=== PATIENT | female | born 1965 | race Caucasian/White ===

== ENCOUNTER 2022-04-28 10:42 | Outpatient (CLI) | payer OTHER, SELFPAY ==
--- NOTE | 2022-04-28 11:02 | MM_ITS ---
WS: [id number] BILATERAL SCREENING DIGITAL TOMOSYNTHESIS MAMMOGRAM WITH CAD HISTORY: SCREENING COMPARISON: 06/18/2015 Bilateral CC and MLO views with tomosynthesis and synthetic mammography submitted. Computer aided det ection analyzed. Breast composition: There are scattered areas of fibroglandular density. No suspicious masses, microc alcifications or architectural distortion. Benign coarse calcifications in each breast. MM/[id number] IMPRESSION: BI-RADS: 2-Benign FOLLOW UP: 1 Year Follow-up
== END 2022-04-28 10:43 | disposition home or self-care (01) ==
PROVIDERS: PCP Family Medicine; Visit Provider Family Medicine
DX: Z12.31 Encounter for screening mammogram for malignant neoplasm of breast (principal)
CPT/HCPCS: 77063; 77067

== ENCOUNTER 2022-08-12 09:48 | Outpatient (CLI) | payer OTHER, SELFPAY ==
--- NOTE | 2022-08-12 09:52 | NM_ITS ---
WS: [id number] NUCLEAR MEDICINE 24 HOUR I-123 THYROID UPTAKE INDICATION: Hyperthyroidism. TECHNIQUE: I-123 24 HOUR THYROID UPTAKE WITH PLANAR IMAGING. 128 UCI ERIC 123 COMPARISON: None FINDINGS: Normal homogeneous thyroid uptake. No cold nodules. Increased thyroid uptake 111.36% at 24 hours. NORMAL 24H THRYOID UPTAKE 8-35% NM/NM thyroid uptake multi [id number] IMPRESSION: 1. Increased thyroid uptake 111.36% at 24 hours compatible with hyperthyroidis m. Recommend correlation with thyroid goiter and thyroiditis. 2. Recommend correlation with thyroid function studies.
== END 2022-08-12 09:49 | disposition home or self-care (01) ==
LOC: RAD 09:50
PROVIDERS: PCP Family Medicine; Visit Provider Internal Medicine
DX: E05.00 Thyrotoxicosis with diffuse goiter without thyrotoxic crisis or storm (principal)
CPT/HCPCS: 78014; A9516

== ENCOUNTER → 2023-01-12 08:59 | Outpatient (BNVA) | payer OTHER, SELFPAY | PROVIDERS: PCP Family Medicine; Referring Provider Family Medicine; Visit Provider Internal Medicine | DX: E05.00 Thyrotoxicosis with diffuse goiter without thyrotoxic crisis or storm (principal) | CPT/HCPCS: 36415; 84439; 84443; 84480 ==

== ENCOUNTER 2023-01-20 10:21 | Outpatient (CLI) | payer OTHER, SELFPAY ==
[2023-01-20 11:15] LABS: Free T4 Free Thyroxine 0.32 ng/dL (0.82-1.77)
[2023-01-21 09:05] LABS: T3 Total 170 ng/dL (76-181)
[2023-01-22 07:08] LABS: Thyroglobulin AB <1 IU/mL (< or = 1)
[2023-01-22 14:54] LABS: Thyroid Peroxidase Antobodies 109 IU/mL (<9)
== END 2023-01-20 10:22 | disposition home or self-care (01) ==
PROVIDERS: PCP Family Medicine; Visit Provider Internal Medicine
DX: E05.00 Thyrotoxicosis with diffuse goiter without thyrotoxic crisis or storm (principal); I10 Essential (primary) hypertension
CPT/HCPCS: 36415; 84439; 84480; 86376; 86800

== ENCOUNTER 2023-02-10 10:54 | Outpatient (CLI) | payer OTHER, SELFPAY ==
[2023-02-10 12:20] LABS: Free T4 Free Thyroxine 1.07 ng/dL (0.82-1.77); Thyroid Stimulating Hormone 0.22 uIU/mL (0.27-4.20)
[2023-02-11 11:05] LABS: T3 Total 156 ng/dL (76-181)
== END 2023-02-10 10:55 | disposition home or self-care (01) ==
LOC: LAB 10:56
PROVIDERS: PCP Family Medicine; Visit Provider Internal Medicine
DX: E05.90 Thyrotoxicosis, unspecified without thyrotoxic crisis or storm (principal)
CPT/HCPCS: 36415; 84439; 84443; 84480

== ENCOUNTER 2023-03-22 09:18 | Outpatient (CLI) | payer OTHER, SELFPAY ==
[2023-03-22 10:15] LABS: Free T4 Free Thyroxine 1.43 ng/dL (0.82-1.77); Thyroid Stimulating Hormone 0.03 uIU/mL (0.27-4.20)
[2023-03-23 07:09] LABS: T3 Total 163 ng/dL (76-181)
== END 2023-03-22 09:19 | disposition home or self-care (01) ==
LOC: LAB 09:18
PROVIDERS: PCP Family Medicine; Visit Provider Internal Medicine
DX: E05.00 Thyrotoxicosis with diffuse goiter without thyrotoxic crisis or storm (principal)
CPT/HCPCS: 36415; 84439; 84443; 84480

== ENCOUNTER 2023-05-24 12:55 | Outpatient (CLI) | payer OTHER, SELFPAY ==
[2023-05-24 13:46] LABS: Free T4 Free Thyroxine 2.37 ng/dL (0.82-1.77); Thyroid Stimulating Hormone 0.01 uIU/mL (0.27-4.20)
[2023-05-25 09:29] LABS: T3 Total 219 ng/dL (76-181)
== END 2023-05-24 12:56 | disposition home or self-care (01) ==
LOC: LAB 12:56
PROVIDERS: PCP Family Medicine; Visit Provider Internal Medicine
DX: E05.90 Thyrotoxicosis, unspecified without thyrotoxic crisis or storm (principal)
CPT/HCPCS: 36415; 84439; 84443; 84480

== ENCOUNTER 2023-06-28 11:06 | Outpatient (CLI) | payer OTHER, SELFPAY ==
--- NOTE | 2023-06-28 11:15 | US_ITS ---
WS: [id number] THYROID ULTRASOUND HISTORY: Thyroid nodules COMPARISON: Ultrasound 06/01/2016 Right lobe: 2.1 cm x 2.3 cm x 4.7 cm (w x ap x l). Volume: 10.9 cm3. Thyroid gland is enlarged with multiple hypoechoic thyroid nodules. There is a larger cystic nodule i n the mid gland. This large cystic nodule measures 1.7 x 1.2 x 2.6 cm. There is marked increased vasc ularity throughout the gland. The remaining hypoechoic nodules are much smaller in size. Left lobe: 2.2 cm x 1.6 cm x 4.6 cm (w x ap x l). Volume: 7.8 cm3. Normal sized gland with numerous hypoechoic nodules. No microcalcifications. No color Doppler submitt ed. Isthmus: 0.2 cm. IMPRESSION: TI-RADS 2: Numerous nodules scattered throughout the gland. The largest nodule is predominantly cysti c. No solid mass. Increased vascularity in the RIGHT thyroid lobe. No Doppler submitted of the LEFT thyroid lobe.
== END 2023-06-28 11:07 | disposition home or self-care (01) ==
LOC: RAD 11:06
PROVIDERS: PCP Family Medicine; Visit Provider Internal Medicine
DX: E06.3 Autoimmune thyroiditis (principal); E05.00 Thyrotoxicosis with diffuse goiter without thyrotoxic crisis or storm
CPT/HCPCS: 76536

== ENCOUNTER 2023-07-16 10:23 | Outpatient (CLI) | payer OTHER, SELFPAY ==
[2023-07-16 12:40] LABS: Free T4 Free Thyroxine 1.14 ng/dL (0.82-1.77); Thyroid Stimulating Hormone 0.01 uIU/mL (0.27-4.20)
[2023-07-17 10:10] LABS: T3 Total 131 ng/dL (76-181)
== END 2023-07-16 10:24 | disposition home or self-care (01) ==
LOC: LAB 10:24
PROVIDERS: PCP Family Medicine; Visit Provider Internal Medicine
DX: E05.00 Thyrotoxicosis with diffuse goiter without thyrotoxic crisis or storm (principal); E06.3 Autoimmune thyroiditis; E05.90 Thyrotoxicosis, unspecified without thyrotoxic crisis or storm
CPT/HCPCS: 84439; 84443; 84480

== ENCOUNTER 2023-07-26 07:23 | Day surgery (SDC) | payer OTHER, SELFPAY ==
[2023-07-26] VITALS (11 sets, daily range): BP systolic 119–149; BP diastolic 62–92; PULSE 52–90; RESP 16–18; TEMP 36.4–36.6; O2SAT 91–98; BMI 23.5
--- NOTE | 2023-07-26 07:38 | W.PM.OPSUD ---
Surgery/Procedure H&P Update DATE OF PROCEDURE: July 26, 2023 DATE H&P PERFORMED: 07/06/23 H&P UPDATE INFORMATION: I have reviewed H&P completed within last 30 days, I have examined patient prior to procedure and No changes to prior documentation CHANGES TO PREVIOUS DOCUMENTATION: No changes except the left lower lip lesion is larger than it had been. PREOP DIAGNOSIS: Thyromegaly with Graves' disease and Jovana's thyroiditis PRIMARY INDICATION FOR PROCEDURE: Thyromegaly with Graves' disease and Jovana's thyroiditis. Left lower lip lesion enlarging in size. PLANNED PROCEDURE: Operation Date: 07/26/23 09:00 Proposed Procedures p Total Thyroidectomy(Not Applicable) - Say Molina MD s Lesion Excisioin Lip Lesion/Mass(Not Applicable) - Say Molina MD
[2023-07-26] MEDS: sodium chloride 0.9% 1,000 ML 30 ML IV (07:55)
--- NOTE | 2023-07-26 08:20 | ANES.PREANE2 ---
Pre-Anesthetic Assessment Height/Weight: Height 1.7 m Weight 68.039 kg Temp Pulse Resp BP Pulse Ox O2 Del Method 97.5 F L 69 17 119/81 98 Room Air 07/26/23 07:42 07/26/23 07:42 07/26/23 07:42 07/26/23 07:42 07/26/23 07:42 07/26/23 07:44 Preop Diagnosis: Thyromegaly with Graves' disease and Jovana's thyroiditis Operation Date: 07/26/23 09:00 Proposed Procedures p Total Thyroidectomy(Not Applicable) - Sya Molina MD s Lesion Excisioin Lip Lesion/Mass(Not Applicable) - Say Molina MD Was Beta Danielle taken within 24 hours: Yes Last intake: Intake Last Liquid Date 07/25/23 Last Liquid Time 20:30 Last Solid Date 07/25/23 Last Solid Time 20:30 Social Tobacco 1/2 ppd x 4 years recently pack(s) per day Exam alert, oriented x 3, clear to auscultation bilaterally and regular rate & rhythm Airway Submandibular: within normal limits Cervical ROM: within normal limits Mallampati: Class II Pulmonary None reported None reported Hepatic None reported GI None reported Metabolic None reported Anesthetic Plan ASA status: 2 Anesthesia: General Medications/Allergies Home Medications Medication Instructions Recorded Confirmed Last Taken Type propranolol 10 mg tablet 10 mg PO BID 90 days #180 tabs 05/04/23 07/23/23 07/26/23 Rx Synthroid 100 mcg tablet 100 mcg PO DAILY #90 tabs 07/19/23 07/23/23 Unknown Rx (levothyroxine) methimazole 5 mg tablet 2.5 mg PO DAILY 07/23/23 07/23/23 07/26/23 History Allergies Allergy/AdvReac Type Severity Reaction Status Date / Time bee venom protein (honey bee) Allergy ALGY-Anaphy Verified 07/26/23 07:39 laxis Current Medications Generic Name Dose Route Start Last Admin Trade Name Freq PRN Reason Stop Dose Admin Sodium Chloride 1,000 mls @ 30 mls/hr 07/26/23 07:30 07/26/23 07:55 Sodium Chloride 0.9% IV 07/27/23 07:29 30 mls/hr .Q24H CHELSEY Administration PFSH Anesthesia Medical History Heart palpitations Hx of Jovana thyroiditis History of hyperthyroidism Graves' disease Surgical History Hx of section Hx of appendectomy Family History Mother Diabetes mellitus, type 2 Social History Smoking and tobacco/nicotine status: current every day tobacco/nicotine user cigarettes Packs smoked per day: 0.5 Years cigarettes smoked: 4 Second hand smoke exposure: No Data Anesthesia Cardiac Studies: No Data to Display
[2023-07-26] MEDS: ceFAZolin 2,000 MG in sodium chloride 0.9% (plus) 50 ML 100 MG IV (09:05)
--- NOTE | 2023-07-26 10:39 | SUR.OPER ---
5.1ML OF 2% LIDOCAINE WITH EPI CARPULES WAS INJECTED INTO THE PATIENT'S NECK.
[2023-07-26] MEDS: neomycin-poly-bacitracin oint 28 gm 1 APPLIC TOPICAL (12:16)
--- NOTE | 2023-07-26 12:23 | P.OP_ITS ---
Operative Report Date of procedure: July 26, 2023 Pre-op diagnosis: Multinodular goiter/Jovana's thyroiditis. Left lower lip lesion Post-op diagnosis: Same Post-op findings: Extremely vascular bilateral thyroid with hypertrophy and nodularity right side greater than left. Extremely thickened isthmus. 5 x 8 mm raised left lower lip lesion Procedure done: Total thyroidectomy. Excision of left lower lip lesion/mass with closure Implants: Quarter inch Bostwick drain to central neck Specimens removed/disposition: Left thyroid lobe. Right thyroid lobe with isthmus. Left lower lip mass. Pathology: Left thyroid lobe. Right thyroid lobe with isthmus. Left lower lip mass. All for permanent pathology. Surgeon: Say Molina MD Anesthesia: General and Local Estimated blood loss: 300 mL Complications: No complications encountered Findings: Bilateral thyroid nodularity right side greater than left with hypertrophy. Jovana's thyroiditis. Left lower lip lesion that she continues to bite in nipple and causing it to persist. Brief History: 57-year-old female patient with Jovana's thyroiditis with bilateral thyroid goiter and right side greater than left with multiple nodules. Left lower lip lesion which probably began from trauma and constant biting and nibbling has caused it to persistent and large. Patient is being brought to the operating room to undergo total thyroidectomy and left lower lip lesion excision. The procedure its risks and complications have been explained in detail to the patient in the office setting. These risks include bleeding infection numbness scarring swelling bruising delayed bleeding potential weakness or paralysis to the vocal cords from the recurrent laryngeal nerve which could be temporary or permanent and could be one-sided or bilateral. Patient may need to have calcium supplementation in the future and certainly will need to be on thyroid supplem entation for life. More serious risk such as heart attack or stroke or not surviving the surgery were also discussed. With these things understood informed consent was granted and witnessed. Procedure: Description of procedure: The patient was placed on the operating table in supine position. Adequate general endotracheal tube anesthesia was obtained. A Ventura catheter was placed to her bladder. Patient received Ancef IV for prophylaxis. A timeout was accomplished identifying the patient and date of and planned procedure and fire risk and medications given as well as allergies. With all in agreement the procedure continued. The patient's lower lip was exposed and after cleansing 1.7 mL of 2% Xylocaine with 1-100,000 epinephrine was used to infiltrate the lower lip in the region of the lower lip mass. This was on the inner surface of the lower lip. After several minutes a 15 blade was used to incise a fusiform excision pattern including the mass and carrying it down to the submucosal tissue. Hemostasis was obtained with bipolar cautery. A single layer closure was done with interrupted 3-0 Vicryl suture. After that was completed attention was turned to the larger portion of the procedure which was the total thyroidectomy. The patient's neck was cleansed with alcohol. 3.4 mL of 2% Xylocaine with 1- 100,000 epinephrine was used to infiltrate in the planned lower neck skin crease line. The patient was then prepped and draped in usual fashion. A marking pen was used to outline the sternal notch the knots of the thyroid cartilage and the planned incision line curvilinear nature following a lower neck skin crease line was accomplished. Then the cut mode of the Bovie was used to incise through the skin carrying it down to the subcutaneous fat layer. Then the Bovie on coagulation mode was used to carry this down through the subcutaneous layer and the platysmal layer. Hemostasis was obtained with bipolar cautery. Then the dissection was carried medially vertically to find the strap muscles and divided them and carried down to the trachea and isthmus of the thyroid which was very prominent and thick. Dissection was carried up to the insertion of the strap muscles at the hyoid bone. Then dissection was carried around in both directions right and left over the thyroid lobes to bear the entire thyroid glands. Then on the right side dissection was carried out on the inferior aspect identifying the inferior thyroid artery preserving it as it supplied the parathyroid glands. The recurrent laryngeal nerve was identified in its usual location and the groove between the trachea and esophagus. Care was taken to preserve this to its full insertion as the dissection was carried out superiorly. Then a similar procedure was performed on the right side to elevate the inferior aspect. Due to the superior aspect being much higher and due to tightness of the strap muscles a partial division was necessary and a partial enlargement of the skin incision was necessary in both directions laterally. This gave best access. Dissection was then carried superiorly and medially removing the thyroid gland first on the left side and dividing the attachment of the isthmus to the left thyroid lobe for ease of removal. Again care was taken to monitor and preserve the recurrent laryngeal nerve to its insertion. No cauterization was done near it. After that lobe was removed the right lobe was removed in similar fashion. Larger vessels were clipped with medium and large vessel clips. This was done wherever necessary. Bipolar cautery was used to control bleeding when necessary and clamping and cauterizing with hemostats was accomplished when appropriate. Once the right lobe and isthmus were removed the areas were irrigated with saline and finger manipulation was accomplished. Minimal ooze was noted from his few sites and this was controlled with bipolar cautery. Then Jasmina was applied to the area of the insertion of the recurrent nerve bilaterally to control ooze that typically occurs at that location because no cauterization was performed in those areas. Then with all bleeding c ontrolled 1/4 inch Bob drain was placed to the right side to a superior depth and brought out centrally through the neck incision. The strap muscles were sutured together where partially transected with interrupted 4-0 chromic suture. Then the subcutaneous and platysma layers were closed with interrupted 4-0 chromic suture. Then the skin was closed with skin tayla. The drain was stable to the skin neck with skin tayla. Then after cleansing Neosporin ointment was applied over the incision and then this was covered with fluffs and then 2 Curlex rolls were placed around the neck with firmness but with a finger breath of looseness to ensure proper blood supply and airway. After that was accomplished and all the drapes were removed the patient was returned to anesthesia for wake-up and extubation. The patient tolerated the procedure well and had an estimated blood loss of 300 mL. She arrived in recovery in stable condition. Patient's voice was intact.
[2023-07-26] MEDS: ondansetron 2 mg/ML SDV 2 mL 4 MG IVP (13:29)
--- NOTE | 2023-07-26 13:36 | ANE.PACU2 ---
Inpatient post-anesthesia follow up: Vital signs: Temperature 97.9 F Pulse Rate 52 Respiratory Rate 16 Blood Pressure 145/72 Pulse Oximetry 94 Oxygen Delivery Me thod Room Air Oxygen Flow Rate 6 Fraction of Inspir ed Oxygen Hydration adequate: Yes Nausea and vomiting: Yes Mental status: Baseline Additional Comments: no apparent anesthetic complications noted
[2023-07-26] MEDS: fentaNYL 50 mcg/mL INJ 2mL IVP (13:49)
[2023-07-26] MEDS: scopolamine 1.5 Patch 1 PATCH TRANSDERMA (14:40)
== END 2023-07-26 14:45 | disposition home or self-care (01) ==
PROVIDERS: PCP Family Medicine; Visit Provider Otolaryngology
PROC: (CPT 60240; principal; 2023-07-26 08:50)
PROC: (CPT 40812; 2023-07-26 08:50)
DX: E04.2 Nontoxic multinodular goiter (principal); K13.0 Diseases of lips
CPT/HCPCS: 40812; 60240; 51702; 88305; 88307; J0690; J1100; J1170; J2405; J2704; J2710; J3010; J3490; J7030

== ENCOUNTER 2023-08-10 10:27 | Outpatient (CLI) | payer OTHER, SELFPAY ==
[2023-08-10 11:10] LABS: Calcium 7.7 mg/dL (8.5-10.5)
[2023-08-10 11:17] LABS: Free T4 Free Thyroxine 1.74 ng/dL (0.82-1.77); Parathyroid Hormone 51.8 pg/mL (15-65)
[2023-08-10 12:24] LABS: Alanine Aminotransferase 9 U/L (0-33); Albumin Level 4.3 g/dL (3.5-5.2); Alkaline Phosphatase 81 U/L (35-105); Anion Gap 17.4 (5-19); Aspartate Amino Transferase 12 U/L (0-32); Blood Urea Nitrogen 9 mg/dL (6-20); Carbon Dioxide 24 mmol/L (22-29); Chloride 104 mmol/L (98-107); Globulin 2.5 g/dL (1.3-4.6); Glomerular Filtration Rate 64.1 mL/min (90-130); Glucose 93 mg/dL (65-115); Osmolality Calculated 290 mOsm/kg (285-295); Potassium 4.4 mmol/L (3.5-5.1); Sodium 141 mmol/L (136-145); Total Bilirubin 0.3 mg/dL (0.15-1.2); Total Protein 6.8 g/dL (6.6-8.7)
== END 2023-08-10 10:28 | disposition home or self-care (01) ==
LOC: LAB 10:28
PROVIDERS: PCP Family Medicine; Visit Provider Internal Medicine
DX: I10 Essential (primary) hypertension (principal); E05.90 Thyrotoxicosis, unspecified without thyrotoxic crisis or storm; E05.00 Thyrotoxicosis with diffuse goiter without thyrotoxic crisis or storm; E06.3 Autoimmune thyroiditis
CPT/HCPCS: 36415; 80053; 82310; 83970; 84439

== ENCOUNTER 2023-09-23 11:44 | Outpatient (CLI) | payer OTHER, SELFPAY ==
[2023-09-23 12:45] LABS: Alanine Aminotransferase 8 U/L (0-33); Albumin Level 4.5 g/dL (3.5-5.2); Alkaline Phosphatase 86 U/L (35-105); Anion Gap 15.5 (5-19); Aspartate Amino Transferase 11 U/L (0-32); Blood Urea Nitrogen 11 mg/dL (6-20); Carbon Dioxide 27 mmol/L (22-29); Chloride 103 mmol/L (98-107); Free T4 Free Thyroxine 2.04 ng/dL (0.82-1.77); Globulin 2.8 g/dL (1.3-4.6); Glomerular Filtration Rate 85.6 mL/min (90-130); Glucose 98 mg/dL (65-115); Osmolality Calculated 291 mOsm/kg (285-295); Potassium 4.5 mmol/L (3.5-5.1); Sodium 141 mmol/L (136-145); Thyroid Stimulating Hormone 0.02 uIU/mL (0.27-4.20); Total Bilirubin 0.6 mg/dL (0.15-1.2); Total Protein 7.3 g/dL (6.6-8.7)
== END 2023-09-23 11:45 | disposition home or self-care (01) ==
LOC: LAB 11:45
PROVIDERS: PCP Family Medicine; Visit Provider Internal Medicine
DX: E05.90 Thyrotoxicosis, unspecified without thyrotoxic crisis or storm (principal); E05.00 Thyrotoxicosis with diffuse goiter without thyrotoxic crisis or storm; E06.3 Autoimmune thyroiditis
CPT/HCPCS: 36415; 80053; 84439; 84443

== ENCOUNTER 2023-09-29 11:53 | Outpatient (CLI) | payer OTHER, SELFPAY ==
[2023-09-29 12:56] LABS: Free T4 Free Thyroxine 1.39 ng/dL (0.82-1.77); Thyroid Stimulating Hormone 0.09 uIU/mL (0.27-4.20)
== END 2023-09-29 11:54 | disposition home or self-care (01) ==
PROVIDERS: PCP Family Medicine; Visit Provider Internal Medicine
DX: E05.90 Thyrotoxicosis, unspecified without thyrotoxic crisis or storm (principal); E05.00 Thyrotoxicosis with diffuse goiter without thyrotoxic crisis or storm; E06.3 Autoimmune thyroiditis
CPT/HCPCS: 36415; 84439; 84443

== ENCOUNTER 2023-10-13 11:00 | Outpatient (CLI) | payer OTHER, SELFPAY ==
--- NOTE | 2023-10-13 10:35 | MM_ITS ---
WS: [id number] BILATERAL SCREENING DIGITAL TOMOSYNTHESIS MAMMOGRAM WITH CAD HISTORY: SCREENING COMPARISON: 04/28/2022 and 06/18/2015 Bilateral CC and MLO views with tomosynthesis and synthetic mammography submitted. Computer aided det ection analyzed. Breast composition: The breasts are heterogeneously dense, which may obscure small masses. No suspici ous masses, microcalcifications or architectural distortion. Benign calcifications in each breast. De nse tissue centrally is stable. MM/[id number] IMPRESSION: BI-RADS: 2-Benign FOLLOW UP: 1 Year Follow-up
== END 2023-10-13 11:01 | disposition home or self-care (01) ==
PROVIDERS: PCP Family Medicine; Visit Provider Family Medicine
DX: Z12.31 Encounter for screening mammogram for malignant neoplasm of breast (principal)
CPT/HCPCS: 77063; 77067

== ENCOUNTER 2023-11-29 10:53 | Outpatient (CLI) | payer OTHER, SELFPAY ==
[2023-11-29 11:31] LABS: Alanine Aminotransferase 8 U/L (0-33); Albumin Level 4.5 g/dL (3.5-5.2); Alkaline Phosphatase 69 U/L (35-105); Anion Gap 13.2 (5-19); Aspartate Amino Transferase 12 U/L (0-32); Blood Urea Nitrogen 13 mg/dL (8-23); Carbon Dioxide 28 mmol/L (22-29); Chloride 102 mmol/L (98-107); Free T4 Free Thyroxine 1.41 ng/dL (0.82-1.77); Globulin 2.6 g/dL (1.3-4.6); Glomerular Filtration Rate 73.2 mL/min (90-130); Glucose 98 mg/dL (65-115); Osmolality Calculated 288 mOsm/kg (285-295); Potassium 4.2 mmol/L (3.5-5.1); Sodium 139 mmol/L (136-145); Thyroid Stimulating Hormone 0.89 uIU/mL (0.27-4.20); Total Bilirubin 0.6 mg/dL (0.15-1.2); Total Protein 7.1 g/dL (6.6-8.7)
[2023-11-29 11:50] LABS: Parathyroid Hormone 13.3 pg/mL (15-65)
[2023-11-29 12:19] LABS: Calcium 8.9 mg/dL (8.5-10.5)
== END 2023-11-29 10:54 | disposition home or self-care (01) ==
PROVIDERS: PCP Family Medicine; Visit Provider Internal Medicine
DX: E05.90 Thyrotoxicosis, unspecified without thyrotoxic crisis or storm (principal); I10 Essential (primary) hypertension; E05.00 Thyrotoxicosis with diffuse goiter without thyrotoxic crisis or storm; E06.3 Autoimmune thyroiditis; E83.51 Hypocalcemia
CPT/HCPCS: 36415; 80053; 82310; 83970; 84439; 84443

== ENCOUNTER 2023-12-22 11:24 | Outpatient (CLI) | payer OTHER, SELFPAY ==
[2023-12-22 12:22] LABS: Alanine Aminotransferase 8 U/L (0-33); Albumin Level 4.4 g/dL (3.5-5.2); Alkaline Phosphatase 70 U/L (35-105); Anion Gap 13.5 (5-19); Aspartate Amino Transferase 13 U/L (0-32); Blood Urea Nitrogen 10 mg/dL (8-23); Calcium 8.5 mg/dL (8.5-10.5); Carbon Dioxide 28 mmol/L (22-29); Chloride 103 mmol/L (98-107); Globulin 2.7 g/dL (1.3-4.6); Glomerular Filtration Rate 73.2 mL/min (90-130); Glucose 95 mg/dL (65-115); Osmolality Calculated 289 mOsm/kg (285-295); Potassium 4.5 mmol/L (3.5-5.1); Sodium 140 mmol/L (136-145); Total Bilirubin 0.6 mg/dL (0.15-1.2); Total Protein 7.1 g/dL (6.6-8.7)
== END 2023-12-22 11:25 | disposition home or self-care (01) ==
LOC: LAB 11:25
PROVIDERS: PCP Family Medicine; Visit Provider Internal Medicine
DX: E03.8 Other specified hypothyroidism (principal); E06.3 Autoimmune thyroiditis; E83.51 Hypocalcemia
CPT/HCPCS: 36415; 80053

== ENCOUNTER 2024-01-31 10:59 | Outpatient (CLI) | payer OTHER, SELFPAY ==
[2024-01-31 11:58] LABS: Calcium 9.4 mg/dL (8.5-10.5)
[2024-01-31 12:06] LABS: Parathyroid Hormone 12.9 pg/mL (15-65)
[2024-01-31 12:12] LABS: 25 Hydroxy Vitamin D 24 ng/mL (30-100); Alanine Aminotransferase 7 U/L (0-33); Albumin Level 4.6 g/dL (3.5-5.2); Alkaline Phosphatase 60 U/L (35-105); Anion Gap 13.8 (5-19); Aspartate Amino Transferase 11 U/L (0-32); Blood Urea Nitrogen 13 mg/dL (8-23); Calcium 9.2 mg/dL (8.5-10.5); Carbon Dioxide 28 mmol/L (22-29); Chloride 100 mmol/L (98-107); Globulin 2.8 g/dL (1.3-4.6); Glomerular Filtration Rate 73.2 mL/min (90-130); Glucose 98 mg/dL (65-115); Osmolality Calculated 284 mOsm/kg (285-295); Potassium 4.8 mmol/L (3.5-5.1); Sodium 137 mmol/L (136-145); Thyroid Stimulating Hormone 0.33 uIU/mL (0.27-4.20); Total Bilirubin 0.6 mg/dL (0.15-1.2); Total Protein 7.4 g/dL (6.6-8.7)
[2024-01-31 12:37] LABS: Free T4 Free Thyroxine 1.64 ng/dL (0.82-1.77)
== END 2024-01-31 11:00 | disposition home or self-care (01) ==
PROVIDERS: PCP Family Medicine; Visit Provider Internal Medicine
DX: E83.51 Hypocalcemia (principal); E03.8 Other specified hypothyroidism; E06.3 Autoimmune thyroiditis
CPT/HCPCS: 36415; 80053; 82306; 82310; 83970; 84439; 84443

== ENCOUNTER 2024-04-03 12:36 | Outpatient (CLI) | payer OTHER, SELFPAY ==
[2024-04-03 13:25] LABS: Calcium 9.2 mg/dL (8.5-10.5)
[2024-04-03 13:31] LABS: Parathyroid Hormone 18.7 pg/mL (15-65)
[2024-04-03 13:40] LABS: 25 Hydroxy Vitamin D 31 ng/mL (30-100); Alanine Aminotransferase 7 U/L (0-33); Albumin Level 4.5 g/dL (3.5-5.2); Alkaline Phosphatase 54 U/L (35-105); Anion Gap 12.2 (5-19); Aspartate Amino Transferase 9 U/L (0-32); Blood Urea Nitrogen 13 mg/dL (8-23); Carbon Dioxide 29 mmol/L (22-29); Chloride 102 mmol/L (98-107); Globulin 2.7 g/dL (1.3-4.6); Glomerular Filtration Rate 85.4 mL/min (90-130); Glucose 114 mg/dL (65-115); Osmolality Calculated 289 mOsm/kg (285-295); Potassium 4.2 mmol/L (3.5-5.1); Sodium 139 mmol/L (136-145); Thyroid Stimulating Hormone 0.33 uIU/mL (0.27-4.20); Total Bilirubin 0.5 mg/dL (0.15-1.2); Total Protein 7.2 g/dL (6.6-8.7)
[2024-04-03 14:02] LABS: Free T4 Free Thyroxine 1.44 ng/dL (0.82-1.77)
== END 2024-04-03 12:37 | disposition home or self-care (01) ==
LOC: LAB 12:38
PROVIDERS: PCP Family Medicine; Visit Provider Internal Medicine
DX: E05.00 Thyrotoxicosis with diffuse goiter without thyrotoxic crisis or storm (principal); E06.3 Autoimmune thyroiditis; E20.9 Hypoparathyroidism, unspecified; E03.8 Other specified hypothyroidism; E55.9 Vitamin D deficiency, unspecified
CPT/HCPCS: 36415; 80053; 82306; 82310; 83970; 84439; 84443

== ENCOUNTER 2024-07-03 11:12 | Outpatient (CLI) | payer OTHER, SELFPAY ==
[2024-07-03 12:42] LABS: Calcium 8.5 mg/dL (8.5-10.5)
[2024-07-03 12:48] LABS: Free T4 Free Thyroxine 1.47 ng/dL (0.82-1.77); Parathyroid Hormone 38.8 pg/mL (15-65); Thyroid Stimulating Hormone 0.18 uIU/mL (0.27-4.20)
[2024-07-03 13:31] LABS: 25 Hydroxy Vitamin D 30 ng/mL (30-100)
== END 2024-07-03 11:13 | disposition home or self-care (01) ==
PROVIDERS: PCP Family Medicine; Visit Provider Internal Medicine
DX: I10 Essential (primary) hypertension (principal); E05.00 Thyrotoxicosis with diffuse goiter without thyrotoxic crisis or storm; E06.3 Autoimmune thyroiditis; E83.51 Hypocalcemia; E03.8 Other specified hypothyroidism
CPT/HCPCS: 36415; 82306; 82310; 83970; 84439; 84443

== ENCOUNTER 2024-09-04 09:39 | Outpatient (CLI) | payer OTHER, SELFPAY ==
[2024-09-04 10:34] LABS: Erythrocyte Sedimentation Rate 8 mm/hr (0-15)
[2024-09-04 10:41] LABS: Calcium 8.4 mg/dL (8.5-10.5)
[2024-09-04 10:48] LABS: Parathyroid Hormone 38.6 pg/mL (15-65)
[2024-09-04 11:00] LABS: 25 Hydroxy Vitamin D 28 ng/mL (30-100); Alanine Aminotransferase 10 U/L (0-33); Albumin Level 4.3 g/dL (3.5-5.2); Alkaline Phosphatase 49 U/L (35-105); Anion Gap 18.5 (5-19); Aspartate Amino Transferase 14 U/L (0-32); Blood Urea Nitrogen 9 mg/dL (8-23); Calcium 8.4 mg/dL (8.5-10.5); Carbon Dioxide 23 mmol/L (22-29); Chloride 105 mmol/L (98-107); Globulin 2.8 g/dL (1.3-4.6); Glomerular Filtration Rate 73.2 mL/min (90-130); Glucose 98 mg/dL (65-115); Osmolality Calculated 293 mOsm/kg (285-295); Potassium 4.5 mmol/L (3.5-5.1); Sodium 142 mmol/L (136-145); Thyroid Stimulating Hormone 0.17 uIU/mL (0.27-4.20); Total Bilirubin 0.6 mg/dL (0.15-1.2); Total Protein 7.1 g/dL (6.6-8.7)
[2024-09-04 11:23] LABS: Free T4 Free Thyroxine 1.79 ng/dL (0.82-1.77)
[2024-09-05 07:16] LABS: SCL 70 <1.0 NEG AI (<1.0 NEG); SS A Ro Sjogrens Antibody <1.0 NEG AI (<1.0 NEG); SS-B/LA IGG <1.0 NEG AI (<1.0 NEG)
[2024-09-05 13:44] LABS: Cyclic Citrullinated Peptide <16 UNITS
== END 2024-09-04 09:40 | disposition home or self-care (01) ==
PROVIDERS: PCP Family Medicine; Visit Provider Internal Medicine
DX: E55.9 Vitamin D deficiency, unspecified (principal); E89.0 Postprocedural hypothyroidism; E20.9 Hypoparathyroidism, unspecified; E06.3 Autoimmune thyroiditis; E05.00 Thyrotoxicosis with diffuse goiter without thyrotoxic crisis or storm; I10 Essential (primary) hypertension
CPT/HCPCS: 36415; 80053; 82306; 82310; 83970; 84439; 84443; 85651; 86038; 86140; 86200; 86235; 86431

== ENCOUNTER → 2024-09-21 13:10 | Outpatient (BNVA) | payer OTHER, SELFPAY | PROVIDERS: PCP Family Medicine; Visit Provider Internal Medicine | DX: E89.0 Postprocedural hypothyroidism (principal); E55.9 Vitamin D deficiency, unspecified; E20.9 Hypoparathyroidism, unspecified; E06.3 Autoimmune thyroiditis; E05.00 Thyrotoxicosis with diffuse goiter without thyrotoxic crisis or storm; I10 Essential (primary) hypertension | CPT/HCPCS: 36415; 84439 ==

== ENCOUNTER 2024-11-20 11:31 | Outpatient (CLI) | payer OTHER, SELFPAY ==
[2024-11-20 13:23] LABS: Free T4 Free Thyroxine 1.63 ng/dL (0.82-1.77); Thyroid Stimulating Hormone 0.11 uIU/mL (0.27-4.20)
== END 2024-11-20 11:32 | disposition home or self-care (01) ==
LOC: LAB 11:38
PROVIDERS: PCP Family Medicine; Visit Provider Internal Medicine
DX: E89.0 Postprocedural hypothyroidism (principal); E20.9 Hypoparathyroidism, unspecified; E03.8 Other specified hypothyroidism; E06.3 Autoimmune thyroiditis; E05.00 Thyrotoxicosis with diffuse goiter without thyrotoxic crisis or storm
CPT/HCPCS: 36415; 84439; 84443; 84480

== ENCOUNTER 2025-01-18 10:05 | Outpatient (CLI) | payer OTHER, SELFPAY ==
[2025-01-18 11:24] LABS: Calcium 8.8 mg/dL (8.5-10.5)
[2025-01-18 11:33] LABS: Alanine Aminotransferase 8 U/L (0-33); Albumin Level 4.5 g/dL (3.5-5.2); Alkaline Phosphatase 47 U/L (35-105); Anion Gap 15.3 (5-19); Aspartate Amino Transferase 11 U/L (0-32); Blood Urea Nitrogen 14 mg/dL (8-23); Calcium 8.8 mg/dL (8.5-10.5); Carbon Dioxide 26 mmol/L (22-29); Chloride 103 mmol/L (98-107); Globulin 2.6 g/dL (1.3-4.6); Glucose 89 mg/dL (65-115); Osmolality Calculated 290 mOsm/kg (285-295); Potassium 4.3 mmol/L (3.5-5.1); Sodium 140 mmol/L (136-145); Thyroid Stimulating Hormone 0.38 uIU/mL (0.27-4.20); Total Protein 7.1 g/dL (6.6-8.7)
[2025-01-18 12:02] LABS: Free T4 Free Thyroxine 1.44 ng/dL (0.82-1.77)
== END 2025-01-18 10:06 | disposition home or self-care (01) ==
PROVIDERS: PCP Family Medicine; Visit Provider Internal Medicine
DX: E89.0 Postprocedural hypothyroidism (principal); E83.51 Hypocalcemia; E06.3 Autoimmune thyroiditis; E05.00 Thyrotoxicosis with diffuse goiter without thyrotoxic crisis or storm; I10 Essential (primary) hypertension
CPT/HCPCS: 36415; 80053; 82306; 82310; 83970; 84439; 84443